=== PATIENT | female | born 1990 | race African-American/Black ===

== ENCOUNTER 2019-08-01 04:41 | Inpatient (IN) ==
[2019-08-01] MEDS ORDERED: CITRIC ACID/SODIUM CITRATE 30 ML UDCUP PO ONE (05:13)
[2019-08-01] MEDS ORDERED: FAMOTIDINE 20 MG/2 ML VIAL IV ONE (05:13)
[2019-08-01] MEDS ORDERED: OXYTOCIN 10 UNIT/ML VIAL IM ONE (05:14)
[2019-08-01] MEDS ORDERED: OXYTOCIN/LR 20 UNIT/1,000 ML BAG IV ONE ×2 (05:14→10:05)
[2019-08-01] MEDS ORDERED: OXYTOCIN/LR 30 UNIT/1,000 ML BAG IV ONE (05:14)
[2019-08-01] MEDS ORDERED: ceFAZolin 3,000 MG in SYRINGE 1 EACH IV ONE (06:00)
[2019-08-01 06:16] LABS: Basophils % 0.4 % (0.0-0.8); Eosinophils # 0.2 10*3/uL (0.0-0.87); Eosinophils % 2.3 % (0.00-10.9); Hematocrit 33.3 VOL% (35.7-47.0); Hemoglobin 10.7 GM/DL (12.0-16.0); Immature Granulocytes Absolute 0.19 #; Lymphocytes # 2.1 10*3/uL (1.4-4.0); Lymphocytes % 22.1 % (21.3-54.2); Mean Corpuscular HGB Conc 32.1 GM/DL (32-36); Mean Corpuscular Volume 88.1 FL (87-102); Mean Platelet Volume 9.5 FL (9.6-12.0); Monocytes % 8.9 % (1.7-12.7); Neutrophils % 64.3 % (38.7-73.9); Platelet Count 190 T/CUMM (130-400); Red Blood Count 3.78 MC/CUMM (3.8-5.5); Red Cell Distribution Width 15.9 % (9.3-17.3); White Blood Count 9.7 T/CUMM (4-12)
[2019-08-01] MEDS: LACTATED RINGERS 1,000 ML IV SCH ×2 (06:18→06:44)
[2019-08-01 06:27] LABS: INR 0.9; PT Patient Result 10.2 SECS (9.8-11.9); Partial Thromboplastin Time 28.8 SECS (23.9-33.8)
[2019-08-01 06:35] LABS: Bilirubin,Direct 0.11 MG/DL (0.0-0.20); Uric Acid 4.1 MG/DL (2.6-6.0)
[2019-08-01 06:38] LABS: Apearance,Urine Slightly Hazy (Clear); Bilirubin,Urine Negative (Negative); Blood, Urine Negative (Negative); Glucose,Urine (UA) Negative (Negative); Ketones,Urine Negative (Negative); Mucus,Urine Occasional /LPF (Occasional); Nitrite,Urine Negative (Negative); Protein,Urine Negative; RBC,Urine 3 /HPF (0-4); Squamous Epithelial Cell,Urine Moderate /HPF (0-10); Urine Color Yellow (Yellow); Urine Specific Gravity 1.021 (1.001-1.035); Urine Urobilinogen < 2.0 EU/DL (0.2-1.0); WBC,Urine 2 /HPF (0-6)
[2019-08-01 06:38] LABS: Bilirubin,Total 0.5 MG/DL (0.2-1.0); Calcium 8.6 MG/DL (8.5-10.1); Eosinophils 2 % (0-10); Hypochromasia 1+; Lymphocytes 25 % (20-55); Nucleated Red Blood Cells 1 (0-5); Osmolality,Calculated 269.8 MOS/KG (273-304); Platelet Estimate Adequate; Segmented Neutrophils 63 % (50-85); Total Cells Counted 100
[2019-08-01] MEDS ORDERED: ROPIVACAINE 0.5% 30 ML VIAL ONE (07:07)
[2019-08-01] MEDS ORDERED: PHENYLEPHRINE 1 MG/10 ML SYRINGE IV ONE (07:07)
[2019-08-01] MEDS ORDERED: MORPHINE 10 MG/10 ML VIAL ONE (07:08)
[2019-08-01] MEDS ORDERED: BUPIVACAINE SPINAL 0.75% 2 ML AMP SPINAL ONE (07:08)
[2019-08-01] MEDS ORDERED: ONDANSETRON 4 MG/2 ML VIAL ONE (07:08)
[2019-08-01] MEDS ORDERED: CARBOPROST TROMETHAMINE 250 MCG/ML AMP IM ONE ×3 (08:14→12:33)
[2019-08-01] MEDS ORDERED: TRANEXAMIC ACID 1,000 MG/10 ML VIAL ONE ×2 (08:14→13:19)
[2019-08-01] MEDS ORDERED: miSOPROStoL 200 MCG TABLET ONE (08:14)
[2019-08-01] MEDS ORDERED: SODIUM CHLORIDE 0.9% 0 ML IV ONE (08:15)
[2019-08-01 09:56] LABS: Apearance,Urine CLEAR (Clear); Bilirubin,Urine Negative (Negative); Blood, Urine Negative (Negative); Glucose,Urine (UA) Negative (Negative); Ketones,Urine Negative (Negative); Mucus,Urine Occasional /LPF (Occasional); Nitrite,Urine Negative (Negative); Protein,Urine Negative; RBC,Urine 1 /HPF (0-4); Urine Color Yellow (Yellow); Urine Specific Gravity 1.021 (1.001-1.035); Urine Urobilinogen < 2.0 EU/DL (0.2-1.0); WBC,Urine 1 /HPF (0-6)
[2019-08-01 09:59] LABS: Cord Venous Blood HCO3 22.2 MMOL/L; Cord Venous Blood PCO2 47.2 MMHG; Cord Venous Blood PO2 26.2 MMHG
[2019-08-01 10:02] LABS: Cord Arterial Blood HCO3 20.1 MMOL/L; Cord Venous Blood HCO3 22.5 MMOL/L; Cord Venous Blood PCO2 45.3 MMHG; Cord Venous Blood PO2 26.5 MMHG
[2019-08-01] MEDS ORDERED: ONDANSETRON 4 MG/2 ML VIAL IV PRN (10:05)
[2019-08-01] MEDS ORDERED: RHO(D) IMMUNE GLOBULIN 300 MCG SYRINGE IM ONE (10:05)
[2019-08-01] MEDS ORDERED: SIMETHICONE CHEW 80 MG TABLET PO PRN (10:05)
[2019-08-01] MEDS ORDERED: ACETAMINOPHEN 325 MG TABLET PO PRN (10:05)
[2019-08-01] MEDS ORDERED: fentaNYL 100 MCG/2 ML VIAL ONE (10:26)
[2019-08-01] MEDS ORDERED: MIDAZOLAM 2 MG/2 ML VIAL ONE (10:27)
[2019-08-01] MEDS ORDERED: HYDROmorphone 2 MG/1 ML VIAL IV PRN (10:28)
[2019-08-01] MEDS ORDERED: ceFAZolin 1,000 MG in SYRINGE 1 EACH IV SCH (10:30)
[2019-08-01] MEDS ORDERED: LACTATED RINGERS 1,000 ML IV SCH (10:30)
[2019-08-01] MEDS: KETOROLAC 30 MG/1 ML VIAL IV SCH ×3 (10:42→21:52)
[2019-08-01] MEDS: ACETAMINOPHEN 500 MG TABLET PO SCH ×2 (11:17→16:50)
[2019-08-01 13:11] LABS: Hematocrit 30.5 VOL% (35.7-47.0)
[2019-08-01] MEDS ORDERED: SODIUM CHLORIDE 0.9% 100 ML IV ONE (13:19)
[2019-08-01] MEDS ORDERED: TRANEXAMIC ACID 1,000 MG in SODIUM CHLORIDE 0.9% 100 ML IV ONE (13:19)
[2019-08-01] MEDS ORDERED: SODIUM CHLORIDE 0.9% 1,000 ML IV PRN ×2 (13:25→13:50)
[2019-08-01] MEDS ORDERED: diphenhydrAMINE 50 MG/1 ML VIAL IV PRN (18:01)
[2019-08-01] MEDS ORDERED: diphenhydrAMINE 2% CREAM 28 GM TUBE TOP PRN (18:30)
[2019-08-01] MEDS ORDERED: hydrOXYzine HCL 25 MG/1 ML VIAL IM PRN (18:40)
[2019-08-01] MEDS: diphenhydrAMINE 50 MG/1 ML VIAL IV PRN (21:32)
[2019-08-02] MEDS: ACETAMINOPHEN 500 MG TABLET PO SCH ×2 (00:10→06:15)
[2019-08-02] MEDS ORDERED: ceFAZolin 1,000 MG in SYRINGE 1 EACH IV SCH (00:30)
[2019-08-02] MEDS: DOCUSATE SODIUM 100 MG CAPSULE PO SCH ×3 (00:31→22:00)
[2019-08-02] MEDS: diphenhydrAMINE 50 MG/1 ML VIAL IV PRN (04:32)
[2019-08-02] MEDS: KETOROLAC 30 MG/1 ML VIAL IV SCH (06:10)
[2019-08-02] MEDS ORDERED: KETOROLAC 30 MG/1 ML VIAL IV SCH (06:30)
[2019-08-02 06:32] LABS: Basophils % 0.2 % (0.0-0.8); Eosinophils # 0.1 10*3/uL (0.0-0.87); Eosinophils % 0.6 % (0.00-10.9); Hematocrit 23.7 VOL% (35.7-47.0); Hemoglobin 7.6 GM/DL (12.0-16.0); Immature Granulocytes % 1.2 %; Immature Granulocytes Absolute 0.15 #; Lymphocytes # 1.8 10*3/uL (1.4-4.0); Lymphocytes % 14.6 % (21.3-54.2); Mean Corpuscular HGB Conc 32.1 GM/DL (32-36); Mean Corpuscular Volume 89.8 FL (87-102); Mean Platelet Volume 9.6 FL (9.6-12.0); Monocytes % 7.5 % (1.7-12.7); Neutrophils % 75.9 % (38.7-73.9); Platelet Count 148 T/CUMM (130-400); Red Blood Count 2.64 MC/CUMM (3.8-5.5); Red Cell Distribution Width 15.4 % (9.3-17.3); White Blood Count 12.5 T/CUMM (4-12)
[2019-08-02] MEDS ORDERED: FERROUS SULFATE 325 MG TABLET PO SCH (09:00)
[2019-08-02] MEDS: FERROUS SULFATE 325 MG TABLET PO SCH ×3 (09:45→22:00)
[2019-08-02] MEDS: MULTIVITAMIN (PRENATAL) TABLET PO SCH (09:45)
[2019-08-02] MEDS: METOCLOPRAMIDE 10 MG TABLET PO SCH ×2 (09:45→17:58)
[2019-08-02] MEDS: MAGNESIUM HYDROXIDE SUSP 30 ML UDCUP PO PRN ×2 (09:47→22:01)
[2019-08-02 14:14] LABS: Hematocrit 24.6 VOL% (35.7-47.0); Hemoglobin 8.1 GM/DL (12.0-16.0)
[2019-08-02] MEDS: IBUPROFEN 800 MG TABLET PO PRN (17:58)
[2019-08-03] MEDS: IBUPROFEN 800 MG TABLET PO PRN ×2 (01:35→07:38)
[2019-08-03] MEDS: METOCLOPRAMIDE 10 MG TABLET PO SCH ×5 (05:19→22:01)
[2019-08-03] MEDS: MULTIVITAMIN (PRENATAL) TABLET PO SCH (07:38)
[2019-08-03] MEDS: DOCUSATE SODIUM 100 MG CAPSULE PO SCH ×3 (07:38→22:01)
[2019-08-03] MEDS: FERROUS SULFATE 325 MG TABLET PO SCH ×3 (07:38→22:01)
[2019-08-04] MEDS: METOCLOPRAMIDE 10 MG TABLET PO SCH ×2 (06:19→08:29)
[2019-08-04 07:40] VITALS: BP 135/59
[2019-08-04] MEDS: MULTIVITAMIN (PRENATAL) TABLET PO SCH (08:28)
[2019-08-04] MEDS: FERROUS SULFATE 325 MG TABLET PO SCH (08:28)
[2019-08-04] MEDS: DOCUSATE SODIUM 100 MG CAPSULE PO SCH (08:28)
[2019-08-04] MEDS: IBUPROFEN 800 MG TABLET PO PRN (08:29)
== END 2019-08-04 13:00 | disposition home or self-care (01) | DRG 540 ==
LOC: N.OB 04:41 → N.LD 09:49 → N.OB 17:32
PROVIDERS: ADMIT Obstetrics & Gynecology; ATTEND Obstetrics & Gynecology
PROC: LDCSECT (ICD-10-PCS; 2019-08-01 09:30)

== ENCOUNTER 2020-11-24 09:36 | Inpatient (IN) ==
[2020-11-24] MEDS ORDERED: FAMOTIDINE 20 MG/2 ML VIAL IV ONE (09:55)
[2020-11-24] MEDS ORDERED: CITRIC ACID/SODIUM CITRATE 30 ML UDCUP PO ONE (09:55)
[2020-11-24] MEDS ORDERED: ceFAZolin 3,000 MG in SYRINGE 1 EACH IV ONE (09:55)
[2020-11-24] MEDS: LACTATED RINGERS 1,000 ML IV SCH ×2 (10:15→14:23)
[2020-11-24 10:19] LABS: Basophils % 0.3 % (0.0-0.8); Eosinophils # 0.3 10*3/uL (0.0-0.87); Eosinophils % 3.3 % (0.00-10.9); Hematocrit 33.2 VOL% (35.7-47.0); Hemoglobin 10.5 GM/DL (12.0-16.0); Immature Granulocytes % 1.3 %; Immature Granulocytes Absolute 0.13 #; Lymphocytes # 1.7 10*3/uL (1.4-4.0); Lymphocytes % 17.1 % (21.3-54.2); Mean Corpuscular HGB Conc 31.6 GM/DL (32-36); Mean Corpuscular Volume 87.8 FL (87-102); Mean Platelet Volume 8.8 FL (9.6-12.0); Monocytes % 7.9 % (1.7-12.7); Neutrophils % 70.1 % (38.7-73.9); Platelet Count 228 T/CUMM (130-400); Red Blood Count 3.78 MC/CUMM (3.8-5.5); Red Cell Distribution Width 15.5 % (9.3-17.3)
[2020-11-24 10:40] LABS: Alanine Aminotransferase < 9 U/L (13-56); Albumin 2.5 G/DL (3.4-5.0); Alkaline Phosphatase 134 U/L (45-117); Aspartate Amino Transferase 11 U/L (0-37); Blood Urea Nitrogen 5 MG/DL (7-18); Calcium 8.4 MG/DL (8.5-10.1); Carbon Dioxide 22 MMOL/L (21-32); Estimated Glom Filtration Rate 220 ML/MIN; Glucose 83 MG/DL (74-106); Osmolality,Calculated 268.8 MOS/KG (273-304); Potassium 3.3 MMOL/L (3.5-5.1); Sodium 137 MMOL/L (136-145); Total Protein 6.8 G/DL (6.4-8.2)
[2020-11-24] MEDS ORDERED: OXYTOCIN/LR 20 UNIT/1,000 ML BAG IV ONE ×2 (10:40→10:57)
[2020-11-24] MEDS ORDERED: OXYTOCIN 10 UNIT/ML VIAL ONE (10:40)
[2020-11-24] MEDS ORDERED: OXYTOCIN 10 UNIT/ML VIAL IM ONE (10:57)
[2020-11-24] MEDS ORDERED: OXYTOCIN/LR 30 UNIT/1,000 ML BAG IV ONE (10:57)
[2020-11-24 11:36] LABS: HIV Antigen/Antibody Result Nonreactive (Nonreactive); Hepatitis B Surface Ag Quant < 0.10 Index; Hepatitis B Surface Ag Result Non-Reactive (NonReactive); Rubella Antibody IgG Result Reactive (NonReactive)
[2020-11-24] MEDS ORDERED: BUPIVACAINE SPINAL 0.75% 2 ML AMP SPINAL ONE (14:30)
[2020-11-24] MEDS ORDERED: miSOPROStoL 200 MCG TABLET ONE (14:37)
[2020-11-24] MEDS ORDERED: METHYLERGONOVINE 0.2 MG/1 ML AMP ONE (14:37)
[2020-11-24] MEDS ORDERED: CARBOPROST TROMETHAMINE 250 MCG/ML AMP IM ONE (14:38)
[2020-11-24] MEDS ORDERED: PHENYLEPHRINE 1 MG/10 ML SYRINGE IV ONE ×2 (15:09→15:10)
[2020-11-24] MEDS ORDERED: ONDANSETRON 4 MG/2 ML VIAL ONE (15:10)
[2020-11-24] MEDS ORDERED: ACETAMINOPHEN INJ 1,000 MG/100 ML VIAL IV ONE (15:12)
[2020-11-24 15:29] LABS: Cord Arterial Blood HCO3 21.8 MMOL/L
[2020-11-24 15:35] LABS: Cord Venous Blood HCO3 22.8 MMOL/L; Cord Venous Blood PCO2 43.5 MMHG; Cord Venous Blood PO2 34.7
[2020-11-24] MEDS ORDERED: diphenhydrAMINE 50 MG/1 ML VIAL IV ONE ×2 (17:11→19:52)
[2020-11-24 19:32] LABS: Bilirubin,Urine Negative (Negative); Blood, Urine Negative (Negative); Glucose,Urine (UA) Negative (Negative); Ketones,Urine 80 mg/dL (Negative); Mucus,Urine Few /LPF (Occasional); Nitrite,Urine Negative (Negative); Protein,Urine Negative; RBC,Urine 2 /HPF (0-4); Squamous Epithelial Cell,Urine Occasional /HPF (0-10); Urine Appearance CLEAR (Clear); Urine Color Yellow (Yellow); Urine Specific Gravity 1.025 (1.001-1.035); Urine Urobilinogen < 2.0 EU/DL (0.2-1.0)
[2020-11-24] MEDS ORDERED: ACETAMINOPHEN 500 MG TABLET PO PRN (21:00)
[2020-11-24] MEDS ORDERED: DOCUSATE SODIUM 100 MG CAPSULE PO PRN (21:47)
[2020-11-24] MEDS ORDERED: NALOXONE 0.4 MG/ML VIAL IV ONE (22:45)
[2020-11-24] MEDS: ACETAMINOPHEN 500 MG TABLET PO SCH (22:45)
[2020-11-24] MEDS: KETOROLAC 30 MG/1 ML VIAL IV SCH (22:45)
[2020-11-24] MEDS: ceFAZolin 2,000 MG/50 ML DUPLEX IV SCH (22:46)
[2020-11-25] MEDS ORDERED: BISACODYL 10 MG SUPP RECTAL PRN (03:19)
[2020-11-25] MEDS ORDERED: MAGNESIUM HYDROXIDE SUSP 30 ML UDCUP PO PRN (03:20)
[2020-11-25] MEDS: ACETAMINOPHEN 500 MG TABLET PO SCH ×3 (03:32→18:38)
[2020-11-25] MEDS: KETOROLAC 30 MG/1 ML VIAL IV SCH ×3 (03:38→18:50)
[2020-11-25] MEDS: ceFAZolin 2,000 MG/50 ML DUPLEX IV SCH (05:34)
[2020-11-25 06:01] LABS: Basophils % 0.2 % (0.0-0.8); Eosinophils # 0.3 10*3/uL (0.0-0.87); Eosinophils % 3.5 % (0.00-10.9); Hematocrit 29.6 VOL% (35.7-47.0); Hemoglobin 9.2 GM/DL (12.0-16.0); Immature Granulocytes % 1.2 %; Lymphocytes # 1.5 10*3/uL (1.4-4.0); Lymphocytes % 18.3 % (21.3-54.2); Mean Corpuscular HGB Conc 31.1 GM/DL (32-36); Mean Corpuscular Volume 89.2 FL (87-102); Mean Platelet Volume 9.1 FL (9.6-12.0); Monocytes % 9.3 % (1.7-12.7); Neutrophils % 67.5 % (38.7-73.9); Platelet Count 192 T/CUMM (130-400); Red Blood Count 3.32 MC/CUMM (3.8-5.5); Red Cell Distribution Width 15.5 % (9.3-17.3); White Blood Count 8.3 T/CUMM (4-12)
[2020-11-25] MEDS: DOCUSATE SODIUM 100 MG CAPSULE PO SCH ×2 (09:12→21:29)
[2020-11-25] MEDS: METOCLOPRAMIDE 10 MG TABLET PO SCH ×3 (09:12→18:42)
[2020-11-25] MEDS: FERROUS SULFATE 325 MG TABLET PO SCH ×2 (09:13→21:29)
[2020-11-25] MEDS ORDERED: hydrOXYzine HCL 25 MG TABLET PO PRN (09:26)
[2020-11-25] MEDS ORDERED: IBUPROFEN 800 MG TABLET PO PRN (21:33)
[2020-11-25] MEDS: POTASSIUM CHLORIDE 20 MEQ TABLET PO PRN ×2 (21:36→23:46)
[2020-11-26] MEDS: METOCLOPRAMIDE 10 MG TABLET PO SCH ×3 (01:19→12:42)
[2020-11-26] MEDS: POTASSIUM CHLORIDE 20 MEQ TABLET PO PRN (01:19)
[2020-11-26 09:48] VITALS: BP 140/77
[2020-11-26] MEDS: FERROUS SULFATE 325 MG TABLET PO SCH (11:30)
[2020-11-26] MEDS: DOCUSATE SODIUM 100 MG CAPSULE PO SCH (11:30)
== END 2020-11-26 12:05 | disposition home or self-care (01) | DRG 540 ==
LOC: N.LD 09:36 → N.OB 21:09
PROVIDERS: ADMIT Obstetrics & Gynecology; ATTEND Obstetrics & Gynecology
PROC: LDCSECT (ICD-10-PCS; 2020-11-24 14:00)